=== PATIENT | female | born 1995 | race Caucasian/White ===

== ENCOUNTER 2020-01-18 00:01 | Inpatient (IN) ==
[~2020-01-18 00:01] MED LIST: DEXTROSE 5%-LACTATED RINGERS 1,000 ML IV PRN; MISOPROSTOL 100 MCG TABLET VG PRN; ONDANSETRON 4 MG TAB.RAPDIS PO PRN; OXYTOCIN/0.9 % SODIUM CHLORIDE 30 UNITS/500 ML BAG IV ONE; PENICILLIN G POTASSIUM 5 MILLIONUNT in DEXTROSE 5 % IN WATER 100 ML IV ONE; RINGER'S SOLUTION,LACTATED 1,000 ML IV ONE
[2020-01-18 00:21] LABS: Hematocrit 34.6 % (37.0-47.0); Hemoglobin 11.1 gm/dL (12.5-16.0); Mean Corpuscular Hemoglobin 26.3 pg (27-31); Mean Corpuscular Hgb Conc 32.1 g/dl (32-36); Mean Platelet Volume 10.5 fl (8-12.5); Neutrophil # 13.7 K/mm3 (1.3-6.0); Neutrophil % 77.2 % (42-75.0); Platelet Count 244 K/mm3 (150-450); Red Blood Count 4.22 M/mm3 (4.2-5.4); Red Cell Distribution Width 13.7 % (11.5-14.0); White Blood Count 17.8 K/mm3 (4.0-10.5)
[2020-01-18 00:35] LABS: Albumin * 2.5 gm/dl (3.4-5.0); Anion Gap 13.7 mmol/L (6.8-13.8); BUN/Creatinine Ratio 12.3 (9.0-21.6); Bilirubin, Total 0.2 mg/dL (0.0-1.1); Ca. Corrected For Albumin 9.1 mg/dL (8.4-10.2); Calcium * 8.2 mg/dL (7.9-10.9); Carbon Dioxide 22.1 mmol/L (24-32.6); Potassium 3.8 mmol/L (3.4-4.6); Total Protein 6.5 gm/dL (6.2-8.2)
[2020-01-18 01:14] LABS: Random Urine Total Protein 19.9 mg/dL (0-12)
[2020-01-18 01:32] LABS: Cocaine Ur Negative (NEGATIVE); Urine Barbiturate Negative (NEGATIVE); Urine Benzodiazepines Negative (NEGATIVE); Urine Opiates Negative (NEGATIVE); Urine PCP Negative (NEGATIVE); Urine THC Negative (NEGATIVE)
[2020-01-18] MEDS: PENICILLIN G POTASSIUM 2.5 MILLIONUNT in DEXTROSE 5 % IN WATER 100 ML IV SCH ×10 (05:30→21:26)
--- NOTE | 2020-01-18 08:42 | HP ---
Chief Complaint - Chief Complaint Date of Service: 01/18/20 Time of Service: 08:21 Chief Complaint: induction of labor History of Present Illness: 24 yo at 39w0d admitted today for induction of labor due to intermittent elevated blood pressures. This complicated by anemia, 1st trimester THC use, smoker - quit, Varicella equivical. RH positive Rubella immune GBS positive Medical History (Last Reviewed 01/18/20 @ 08:25 by Riley Akins DO) Gestational hypertension (Acute) Onset Date: 11/25/19 Anemia affecting (Acute) Onset Date: 11/03/19 Influenza vaccination declined Onset Date: 12/07/19 Body piercing Onset Date: Unknown Tattoos Onset Date: Unknown Wears glasses Onset Date: Unknown Surgical History: Surgical History (Last Reviewed 01/18/20 @ 08:25 by Riley Akins DO) [place] teeth extracted Onset Date: Unknown Family History: Family History (Last Reviewed 01/18/20 @ 08:25 by Riley Akins DO) Mother Alive and well Father Alive and well Social History: (Last Reviewed 01/18/20 @ 08:26 by Riley Akins DO) Social History: adopted: No usp: No Marital status: Single household members: significant other number of children: 0 current occupational status: employed current occupation: [employer] current occupational exposures/hazards: No Highest level of school completed/degree received: high school graduate Sexually Active: Yes Service: No Tobacco: Smoking Status: Former smoker Alcohol: alcohol intake: current alcohol intake frequency: holiday/special occasion details: No alcohol since + UPT Substance Use: substance use type: marijuana Dietary Habits: caffeine: Yes caffeine comment: 2-3/day Type: carbonated beverages Exercise: frequency: other Yulissa/Scientologist: agree to transfusion: No Review Of Systems (GEN) - Review of Systems Generalized/Overall Review: Present: No Symptoms Reported EENTM: Present: No Symptoms Reported Respiratory: Present: No Symptoms Reported Cardiac: Present: No Symptoms Reported Abdominal: Present: No Symptoms Reported Genitourinary: Present: No Symptoms Reported Musculoskeletal: Present: No Symptoms Reported Neurological: Present: No Symptoms Reported Skin: Present: No Symptoms Reported Endocrine: Present: No Symptoms Reported Allergies/Adverse Reactions: Allergies Allergy/AdvReac Type Severity Reaction Status Date / Time codeine AdvReac n/v Verified 01/18/20 00:02 Home Medications: HOME MEDICATIONS [id number] 400 mcg-om3 35 mg-dha 25 mg-epa 5 mg-fish oil chewable tablet 2 tab PO DAILY tab 07/06/19 [Last Taken Unknown] ferrous sulfate 325 mg (65 mg iron) tablet 325 mg PO DAILY #30 tab 11/03/19 [Last Taken Unknown] Exam - Exam Vital Signs: Vital Signs - Last Taken Temp 36.7 C 01/18/20 01:37 Pulse 94 01/18/20 01:37 Resp 18 01/18/20 01:37 BP 129/67 01/18/20 01:37 Pulse Ox 97 01/18/20 01:37 Constitutional: Present: Alert, Oriented x3, Cooperative ENT Exam: Present: hearing grossly normal Neck: Present: non-tender, trachea midline. Absent: thyromegaly Breasts: Present: Exam deferred Respiratory: Present: lungs clear, no respiratory distress Cardiovascular/Chest: Present: normal peripheral pulses, regular rate, rhythm Abdomen: Present: Normal bowel sounds, soft, nontender, no rebound tenderness, other - gravid /Rectal: Present: Other - Cervix - 1/50/-3 on admission Extremity: Present: no pedal edema, no calf tenderness Skin Exam: Present: normal color, warm/dry, no cyanosis Lymphatic: Present: no adenopathy Neurologic: Present: alert, normal mood/affect, oriented x 3 Appearance: Present: appropriate appearance, appropriate insight Eye contact: Present: cooperative, good eye contact Thoughts: Present: normal thought pattern, normal mood /affect Diagnostic Studies: Abnormal Lab Results 01/18/20 01/18/20 01/18/20 Range/Units 00:15 00:15 00:15 WBC 17.8 H (4.0-10.5) K/mm3 Hgb 11.1 L (12.5-16.0) gm/dL Hct 34.6 L (37.0-47.0) % MCH 26.3 L (27-31) pg Immature Gran % (Auto) 0.70 H (0.001-0.429) % Immature Gran # (Auto) 0.13 H (0.000-0.0310) K/mm3 Neutrophils % 77.2 H (42-75.0) % Lymphocytes % 15.3 L (20-51) % Neutrophils # 13.7 H (1.3-6.0) K/mm3 Carbon Dioxide 22.1 L (24-32.6) mmol/L ALT 16 L (19-67) U/L Albumin 2.5 L (3.4-5.0) gm/dl U Random Total Protein 19.9 H (0-12) mg/dL U [place] Prot/Creat Ratio 206 H (0-199) mg/gm Laboratory Results WBC 17.8 K/mm3 (4.0-10.5) H 01/18/20 00:15 RBC 4.22 M/mm3 (4.2-5.4) 01/18/20 00:15 Hgb 11.1 gm/dL (12.5-16.0) L 01/18/20 00:15 Hct 34.6 % (37.0-47.0) L 01/18/20 00:15 MCV 82.0 fl (78-100) 01/18/20 00:15 MCH 26.3 pg (27-31) L 01/18/20 00:15 MCHC 32.1 g/dl (32-36) 01/18/20 00:15 RDW 13.7 % (11.5-14.0) 01/18/20 00:15 Plt Count 244 K/mm3 (150-450) 01/18/20 00:15 MPV 10.5 fl (8-12.5) 01/18/20 00:15 Immature Gran % (Auto) 0.70 % (0.001-0.429) H 01/18/20 00:15 Immature Gran # (Auto) 0.13 K/mm3 (0.000-0.0310) H 01/18/20 00:15 Neutrophils % 77.2 % (42-75.0) H 01/18/20 00:15 Lymphocytes % 15.3 % (20-51) L 01/18/20 00:15 Monocytes % 5.6 % (0.0-9) 01/18/20 00:15 Eosinophils % 1.0 % (0.0-3.0) 01/18/20 00:15 Basophils % 0.2 % (0.0-1.0) 01/18/20 00:15 Nucleated RBC % 0.0 k/mm3 (0-1) 01/18/20 00:15 Neutrophils # 13.7 K/mm3 (1.3-6.0) H 01/18/20 00:15 Lymphocytes # 2.73 k/mm3 (1.5-3.5) 01/18/20 00:15 Monocytes # 1.0 k/mm3 (0.0-1.0) 01/18/20 00:15 Eosinophils # 0.2 k/mm3 (0.0-0.7) 01/18/20 00:15 Absolute Basophils 0.0 k/mm3 (0.0-0.1) 01/18/20 00:15 Sodium 136 mmol/L (132-142) 01/18/20 00:15 Plasma Sodium 136 mmol/L (130-142) 01/18/20 00:15 Potassium 3.8 mmol/L (3.4-4.6) 01/18/20 00:15 Chloride 104 mmol/L (97-106) 01/18/20 00:15 Carbon Dioxide 22.1 mmol/L (24-32.6) L 01/18/20 00:15 Anion Gap 13.7 mmol/L (6.8-13.8) 01/18/20 00:15 BUN 8 mg/dL (3-23) 01/18/20 00:15 Creatinine 0.65 mg/dL (0.4-1.4) 01/18/20 00:15 Est GFR (Non-Af Amer) 118 mL/min (60-130) D 01/18/20 00:15 BUN/Creatinine Ratio 12.3 (9.0-21.6) 01/18/20 00:15 Random Glucose 91 mg/dL (70-110) 01/18/20 00:15 Calcium 8.2 mg/dL (7.9-10.9) 01/18/20 00:15 Calcium Adj for Albumin 9.1 mg/dL (8.4-10.2) 01/18/20 00:15 Total Bilirubin 0.2 mg/dL (0.0-1.1) 01/18/20 00:15 AST 16 U/L (0-48) 01/18/20 00:15 ALT 16 U/L (19-67) L 01/18/20 00:15 Alkaline Phosphatase 154 U/L (50-170) 01/18/20 00:15 Total Protein 6.5 gm/dL (6.2-8.2) 01/18/20 00:15 Albumin 2.5 gm/dl (3.4-5.0) L 01/18/20 00:15 Ur Random Creatinine 96.6 mg/dL (60-200) 01/18/20 00:15 U Random Total Protein 19.9 mg/dL (0-12) H 01/18/20 00:15 U [place] Prot/Creat Ratio 206 mg/gm (0-199) H 01/18/20 00:15 Urine Opiates Screen Negative (NEGATIVE) 01/18/20 00:15 Barbiturate Screen Negative (NEGATIVE) 01/18/20 00:15 Ur Phencyclidine Scrn Negative (NEGATIVE) 01/18/20 00:15 Urine Amphetamine Negative (NEGATIVE) 01/18/20 00:15 U Benzodiazepines Scrn Negative (NEGATIVE) 01/18/20 00:15 Urine Cocaine Screen Negative (NEGATIVE) 01/18/20 00:15 Urine Marijuana (THC) Negative (NEGATIVE) 01/18/20 00:15 Assessment/Plan - Assessment/Plan (1) Elevated blood pressure reading in office without diagnosis of hypertension Assessment: Admit for induction of labor. Pitocin and Epidural PRN. Problem: Acute (2) Maternal varicella, non-immune Problem: Acute (3) BMI 37.0-37.9, adult Problem: Acute (4) Anemia Problem: Acute Qualifiers: Anemia type: iron deficiency Iron deficiency anemia type: inadequate dietary iron intake Qualified Code(s): D50.8 - Other iron deficiency anemias
--- NOTE | 2020-01-18 09:04 | PN ---
Progess Note - Interim Date: 01/18/20 Time: 09: Narrative: 01/18/20 09:01 Patient rating contractions as mild Vital signs stable. Pitocin at 2 mu/min. FHT: 130 baseline, [reassuring] Contractions q [2-3] min Cervix: 1-2/-3, Gunderson bulb inserted into cervix and filled with 60 mL of sterile saline. Ruptured membranes occurred with insertion of Gunderson bulb. Impression: Intrauterine at [39] weeks [in labor] Plan: Pitocin turned off to assess response with ruptured membranes and Gunderson bulb. Continue with induction of labor.
[2020-01-18] MEDS ORDERED: NALOXONE HCL 1 MG/1 ML SYRG IV PRN (09:58)
[2020-01-18] MEDS ORDERED: ONDANSETRON HCL/PF 2 MG/ML VIAL IV PRN (09:58)
[2020-01-18] MEDS ORDERED: fentaNYL CITRATE/PF 50 MCG/ML AMPUL IT SCH (10:00)
--- NOTE | 2020-01-18 10:14 | ANES ---
Anesthesia Pre Procedure Eval Vitals/Labs: Last Vital Signs Temp 36.7 C 01/18/20 01:37 Pulse 94 01/18/20 01:37 Resp 18 01/18/20 01:37 BP 129/67 01/18/20 01:37 Pulse Ox 97 01/18/20 01:37 HOME MEDICATIONS [id number] 400 mcg-om3 35 mg-dha 25 mg-epa 5 mg-fish oil chewable tablet 2 tab PO DAILY tab 07/06/19 [Last Taken Unknown] ferrous sulfate 325 mg (65 mg iron) tablet 325 mg PO DAILY #30 tab 11/03/19 [Last Taken Unknown] Allergies/Adverse Reactions: Allergies Allergy/AdvReac Type Severity Reaction Status Date / Time codeine AdvReac n/v Verified 01/18/20 00:02 - Planned Procedure Planned Procedure: MEDICAL INDUCTION 39 WEEKS Medication List Reviewed:: Yes Allergies Verified: Yes Medical History (Last Reviewed 01/18/20 @ 10:13 by Jacob Ji CRNA) Gestational hypertension (Acute) Onset Date: 11/25/19 Anemia affecting (Acute) Onset Date: 11/03/19 Influenza vaccination declined Onset Date: 12/07/19 Body piercing Onset Date: Unknown Tattoos Onset Date: Unknown Wears glasses Onset Date: Unknown Surgical History (Last Reviewed 01/18/20 @ 10:13 by Jacob Ji CRNA) [place] teeth extracted Onset Date: Unknown Family History (Last Reviewed 01/18/20 @ 10:13 by Jacob Ji CRNA) Mother Alive and well Father Alive and well - Family Anesthesia History Family History:: no untoward family reactions to anesthesia, no familial bleeding tendencies, no family history of clotting disorders, no family history of premature - Airway/Neck/Teeth Within Normal Limits:: Yes Teeth Condition: intact Neck Exam: full range of motion Mallampatti Score: 2 Thyromental (T-M) distance: > 6 cm Mandibulo Hyoid distance: > 3 cm - Respiratory Respiratory Physical: lungs clear Smoking Status: Former smoker Sleep Apnea currently treated: No Sleep Apnea by current assessment: No - Cardiovascular Tolerate Activity: Fair Heart Sounds: S1 & S2, Regular - Gastrointestinal NPO since: today - Anesthesia Assessment and Plan ASA Class: PS, II, E Anesthesia Type Plan: Epidural - CSE for labor analgesia
--- NOTE | 2020-01-18 10:38 | ANES ---
Anesthesia Procedure Note Procedure Note: ANESTHESIA PROCEDURE NOTE Date of Procedure: 01/18/2020 Time of procedure: 10:15 AM. Performed by: ANAHI Hernandez CRNA, MSN Security Operations Manager: Marilu Maier RN. Preprocedure diagnosis: Active labor, labor pain. Post procedure diagnosis: Same. Procedure:Epidural for labor analgesia L3-4. Indications: Labor pain. Findings: See below. Details of the procedure: The patient was placed on the side of the bed in sitting positionand prepped with DuraPrep then draped in a sterile fashion. Lidocaine 1% was infiltrated to the skin and subcutaneous tissues at the level of the L3-4 interspace. An 18-gauge Touhy needle was used to approach the epidural space with loss of resistance technique. I was unable to the 27-gauge needle through the epidural needle so alternatively, I injected 50 mics of fentanyl into the epidural space then threaded the epidural catheter approximately 4 cm and the epidural needle was removed. The additional 50 mcg of fentanyl was then injected, the catheter was taped in place and after careful aspiration 3 mL of 1.5% lidocaine with 1-200,000 epinephrine was injected without change in maternal heart rate or sensorium. . EBL: Minimal. Fluids: N/A. Specimen: N/A. Post procedure condition: The patient tolerated the procedure well with good relief. No complications were noted. Thank you for this consultation. Jacob Ji CRNA, ARNP, MSN
--- NOTE | 2020-01-18 10:39 | ANES ---
Post Anesthesia Discharge - Transfer of Care Transfer of Care handoff given to nurse: Yes - Discharge from PACU Discharge from PACU when meets criteria: Yes - Comfortable post CSE.
--- NOTE | 2020-01-18 11:01 | ANES ---
Post Anesthesia Assessment - Vital Signs Vitals: Last Vital Signs Temp 36.7 C 01/18/20 01:37 Pulse 94 01/18/20 01:37 Resp 18 01/18/20 01:37 BP 129/67 01/18/20 01:37 Pulse Ox 97 01/18/20 01:37 Airway Patency: Normal - Mental Status Level Of Consciousness: Awake, Alert, Appropriate - Pain Level Pain Score: 0 - N/V Assessment Nausea/Vomiting Presence: None Dehydration:: No
[2020-01-18] MEDS: BUPIVACAINE HCL/0.9 % NACL/PF 250 ML EP PRN (11:02)
--- NOTE | 2020-01-18 17:22 | PN ---
Progess Note - Interim Date: 01/18/20 Time: 17:19 Narrative: 01/18/20 17:19 Patient [comfortable with epidural] Vital signs stable. Pitocin at 16 mu/min. FHT: 130 baseline, moderate [id number] variability with good accelerations and rare late deceleration. contractions q 2-4 min Cervix: 4/80/-3 Impression: Intrauterine at [39] weeks induction of labor for borderline gestational hypertension. GBS carrier Plan: Increase Pitocin to keep contractions every 23 minutes. Continue IV penicillin.
[2020-01-19] MEDS: PENICILLIN G POTASSIUM 2.5 MILLIONUNT in DEXTROSE 5 % IN WATER 100 ML IV SCH ×4 (01:25→05:17)
[2020-01-19] MEDS: BUPIVACAINE HCL/0.9 % NACL/PF 250 ML EP PRN (04:20)
--- NOTE | 2020-01-19 06:05 | PN ---
Progess Note - Interim Date: 01/19/20 Time: 05:59 Narrative: 01/19/20 05:59 Patient comfortable with epidural Vital signs stable with rare elevated BP in mild range. Pitocin at 20 mu/min. FHT: 135 baseline, moderate [id number] variability with early decelerations, no late decelerations. contractions q 2-3 min Cervix: 6-7/100/-3 Impression: Intrauterine at 39-1/7 weeks induction of labor for borderline gestational hypertension. Patient making slow progress in station remaining at -3. Plan: I am concerned for cephalopelvic disproportion, however, we will continue with induction of labor as long as patient continues to make change and mother and baby look good.
[2020-01-19] MEDS ORDERED: BENZOCAINE/MENTHOL 81 SPRAY CAN TP PRN (08:50)
[2020-01-19] MEDS ORDERED: HYDROCORTISONE 30 APPL TUBE TP PRN (08:50)
[2020-01-19] MEDS ORDERED: oxyCODONE HCL/ACETAMINOPHEN 1 TAB TABLET PO PRN (08:50)
[2020-01-19] MEDS ORDERED: SENNOSIDES 8.6 MG TABLET PO PRN (08:50)
[2020-01-19] MEDS ORDERED: BISACODYL 10 MG SUPP.RECT RC PRN (08:50)
[2020-01-19] MEDS ORDERED: GLYCERIN/WITCH HAZEL LEAF 40 APPL BOX TP PRN (08:50)
[2020-01-19] MEDS ORDERED: OXYTOCIN/0.9 % SODIUM CHLORIDE 30 UNITS/500 ML BAG IV ONE (08:50)
--- NOTE | 2020-01-19 08:53 | OR ---
Operative Report - Dictated Report Narrative: Continues vaginal delivery of vigorously crying viable female at 818 on 01/19/2020 with Apgars 9 and 9, weighing 2997 g in CARISSA position with terminal meconium. Cord clamping delayed approximately 1 minute Placenta delivered complete, intact, with three vessel cord Estimated blood loss: 150 mL Anesthesia: Epidural Lacerations: Right labia minora abrasion with no repair needed. History for MU History for Definition: * The number of deliveries resulting in a live the patient experienced prior to current hospitalization * The previous delivery of live twins or any live multiple gestation is considered one live event. *If primagravida or nulliparous is documented select zero for the number of previous live births. Live Events: Live Events: 1
[2020-01-19] MEDS: IBUPROFEN 800 MG TABLET PO PRN (17:50)
[2020-01-19] MEDS: DOCUSATE SODIUM 100 MG CAPSULE PO SCH (21:41)
[2020-01-20] MEDS: IBUPROFEN 800 MG TABLET PO PRN ×3 (04:21→23:30)
[2020-01-20] MEDS: DOCUSATE SODIUM 100 MG CAPSULE PO SCH ×3 (07:34→20:29)
[2020-01-20] MEDS: FERROUS SULFATE 325 MG TABLET PO SCH ×2 (07:34→12:11)
[2020-01-20] MEDS: PRENATAL VITS96/IRON FUM/FOLIC 1 TAB TABLET PO SCH ×2 (07:35→12:11)
--- NOTE | 2020-01-20 07:37 | PN ---
Subjective - Date and Time Seen Date: 01/20/20 Time: 07:36 Objective - Vitals Vitals: Last Vital Signs Temp 36.0 C 01/20/20 07:22 Pulse 75 01/20/20 07:22 Resp 18 01/20/20 07:22 BP 125/71 01/20/20 07:22 Pulse Ox 99 01/20/20 07:22 Patient denies complaints. Specifically denies headaches, visual changes, or epigastric pain. Bottlefeeding Lochia wnl abdomen - soft, nontender Uterus -firm, at umbilicus - 1 No calf tenderness Impression: day #1 - s/p spontaneous vaginal delivery. Plan: Continue routine care. Encouraged mother to try breast- feeding. Cauti Physician Documentation - Urinary Catheter Management Urethral (Gunderson) Date of Insertion: 01/18/20 Time of Insertion: 10:45 Date of Removal: 01/19/20 Time of Removal: 07:45 Assessment/Plan - Problems/Diagnosis (1) Elevated blood pressure reading in office without diagnosis of hypertension Problem: Acute (2) Maternal varicella, non-immune Problem: Acute (3) BMI 37.0-37.9, adult Problem: Acute (4) Anemia Problem: Acute Qualifiers: Anemia type: iron deficiency Iron deficiency anemia type: inadequate dietary iron intake Qualified Code(s): D50.8 - Other iron deficiency anemias
[2020-01-21 07:53] VITALS: BP 125/72
--- NOTE | 2020-01-21 08:23 | PN ---
Subjective - Date and Time Seen Date: 01/21/20 Time: 07:50 Objective - Vitals Vitals: Last Vital Signs Temp 36.6 C 01/21/20 07:52 Pulse 88 01/21/20 07:52 Resp 20 01/21/20 07:52 BP 125/72 01/21/20 07:52 Pulse Ox 96 01/21/20 07:52 Patient denies complaints. Bottlefeeding Lochia wnl abdomen - soft, nontender Uterus -firm, at umbilicus - 2 No calf tenderness Impression: day #2 - s/p spontaneous vaginal delivery. Plan: Routine discharge instructions Cauti Physician Documentation - Urinary Catheter Management Urethral (Gunderson) Date of Insertion: 01/18/20 Time of Insertion: 10:45 Date of Removal: 01/19/20 Time of Removal: 07:45 Assessment/Plan - Problems/Diagnosis (1) Elevated blood pressure reading in office without diagnosis of hypertension Problem: Acute (2) Maternal varicella, non-immune Problem: Acute (3) BMI 37.0-37.9, adult Problem: Acute (4) Anemia Problem: Acute Qualifiers: Anemia type: iron deficiency Iron deficiency anemia type: inadequate di etary iron intake Qualified Code(s): D50.8 - Other iron deficiency anemias
--- NOTE | 2020-01-21 08:25 | DS ---
OB Discharge Summary (1) Elevated blood pressure reading in office without diagnosis of hypertension Status: Resolved (2) Maternal varicella, non-immune Status: Chronic (3) BMI 37.0-37.9, adult Status: Chronic (4) Anemia Status: Chronic Qualifiers: Anemia type: iron deficiency Iron deficiency anemia type: inadequate dietary iron intake Qualified Code(s): D50.8 - Other iron deficiency anemias Delivery Date: 01/19/20 Delivery Time: 08:18 :: 1 Para:: 1 Gestational weeks:: 39 Gestational days:: 1 Intrapartum Procedures: Spontaneous Vaginal Delivery, Delivered /OP Complications: No Complications Discharge Diagnosis: Term -Delivered, Rubella Nonimmune - Discharge Information Date of Discharge: 01/21/20 Hospital Course: Patient was admitted for induction of labor on January 18, 2020 for elevated bl ood pressure which did not meet criteria for gestational hypertension. After slow progress she had a uncomplicated vaginal delivery and course and was discharged on day with routine discharge instructions. Discharge Location: Home Disposition: Home self-care Condition: Good Activity on Discharge:: Activity as tolerated Discharge Diet: General/regular food Additional Patient Instructions (free text): Tiny you have a follow up appointment with Dr. Akins on February 01 at 10:15. Jessica has appointment with Dr. Ferrari tomorrow at 945. Jessica blood type is O+, she has passed her hearing screen. She has passed her CHD screening, her metabolic screen has been drawn. Please continue to bottle feed every 3-4 hours. Always lay her on her back to sleep in her own sleeping space with no loose blankets or other objects in her sleeping space. Thank you for choosing [facility] for your special delivery. Please never hesitate to call if you have any questions or concern. [facility] [phone] [facility] [phone] [facility] [phone] Prescriptions (Any new or edited meds): Ibuprofen [Motrin] 200 - 800 mg PO Q6H PRN #100 tab PRN Reason: Pain Complete Home Medications List: Complete Home Medication List: [id number] 400 mcg-om3 35 mg-dha 25 mg-epa 5 mg-fish oil chewable tablet 2 tab PO DAILY tab 07/06/19 ferrous sulfate 325 mg (65 mg iron) tablet 325 mg PO DAILY #30 tab 11/03/19 Ibuprofen [Motrin] 200 - 800 mg PO Q6H PRN #100 tab 01/20/20 - Plan Discharge to:: Home Follow up in office in:: 3-4 weeks - Information Weight (Grams): 2,997 Sex: Female Score 1 min: 9 Score 5 min: 9 Infant Complications: Meconium - terminal
[2020-01-21] MEDS: DOCUSATE SODIUM 100 MG CAPSULE PO SCH (08:49)
[2020-01-21] MEDS: PRENATAL VITS96/IRON FUM/FOLIC 1 TAB TABLET PO SCH (08:49)
[2020-01-21] MEDS: FERROUS SULFATE 325 MG TABLET PO SCH (08:49)
== END 2020-01-21 11:30 | disposition home or self-care (01) | DRG 807 ==
LOC: OB 00:01 → MS 01-20 11:58
PROVIDERS: ADMIT Obstetrics & Gynecology; ATTEND Obstetrics & Gynecology